=== PATIENT | female | born 1945 | race Caucasian/White ===

== ENCOUNTER 2018-01-08 09:49 | Outpatient (CLI) | payer MEDICARE, OTHER | END 2018-01-08 09:50 | disposition home or self-care (01) | LOC: BICULT 09:49 | PROVIDERS: ATTEND Family Medicine | DX: E04.1 Nontoxic single thyroid nodule (principal) | CPT/HCPCS: 76536 ==

== ENCOUNTER 2020-04-13 05:46 | Outpatient (CLI) | payer MEDICARE, OTHER ==
[2020-04-13 11:49] LABS: #Eosinphils 0.1 thou/uL (0.0-0.7); #Lymphocytes 1.5 thou/uL (1.20-3.40); #Monocytes 0.5 thou/uL (0.11-0.59); #Neutrophils 3.1 thou/uL (1.40-6.50); %Basophils 0.9 % (0.0-1.0); %Eosinophils 2.5 % (0.0-10.0); %Lymphocytes 28.3 % (21.0-51.0); %Monocytes 8.5 % (0.0-10.0); %Neutrophils 59.7 % (42.0-75.0); Hemoglobin 12.8 g/dL (12.0-16.0); Mean Corpuscular HGB CONC 31.7 g/dL (32.0-36.0); Mean Corpuscular Hemoglobin 28.7 pg (27.0-31.0); Mean Corpuscular Volume 90.4 fL (78.0-98.0); Mean Platelet Volume 10.2 fL (7.4-10.4); Platelet Count 134 thou/uL (130-400); RBC Distribution Width 13.5 % (11.5-14.5); Red Blood Cell (RBC) Count 4.47 mill/uL (4.20-5.40); White Blood Cell (WBC) Count 5.2 thou/uL (4.8-10.8)
[2020-04-13 12:08] LABS: ALT (SGPT) 19 U/L (8-55); AST (SGOT) 17 U/L (5-34); Albumin 4.2 g/dL (3.4-4.8); Alkaline Phosphatase 54 U/L (40-110); Anion Gap 11 mmol/L (10-20); BUN (Urea Nitrogen) 10 mg/dL (9.8-20.1); Bilirubin, Total 0.5 mg/dL (0.2-1.2); Calc. Creatinine Clearance 0 mL/min (70-130); Calcium 9.3 mg/dL (7.8-10.44); Carbon Dioxide 27 mmol/L (23-31); Chloride 108 mmol/L (98-107); Estimated GFR-MDRD 77; Globulin 2.1 g/dL (2.4-3.5); Glucose 86 mg/dL (83-110); Potassium 4.1 mmol/L (3.5-5.1); Protein, Total 6.3 g/dL (6.0-8.3); Sodium 142 mmol/L (136-145)
[2020-04-14 13:46] LABS: SARS-CoV-2 MS2 Positive; SARS-CoV-2 N Gene Negative; SARS-CoV-2 S Gene Negative; SARS-CoV-2 orf1ab Negative
== END 2020-04-13 05:47 | disposition home or self-care (01) ==
LOC: LABBT 05:46
PROVIDERS: ATTEND Surgery
DX: Z01.812 Encounter for preprocedural laboratory examination (principal); Z11.59 Encounter for screening for other viral diseases; C50.911 Malignant neoplasm of unspecified site of right female breast
CPT/HCPCS: 80053; 85025; U0003; 87635; 93005; 93010

== ENCOUNTER 2020-04-15 07:23 | Day surgery (SDC) | payer MEDICARE, OTHER ==
[2020-04-15] MEDS ORDERED: Scopolamine 1.5 mg/72 hour Patch ONE (09:35)
--- NOTE | 2020-04-15 10:51 | NM ---
RightBREAST LYMPHOSCINTIGRAPHY: INDICATION: Right breast cancer Radial pharmaceutical: 0.387 mCi of technetium 99m filtered sulfur colloid TECHNIQUE: The rightnipple areolar complex was cleansed with alcohol. The radiotracer was injected wi thin the subcutaneous tissues surrounding the nipple areolar complex in 4 separate aliquots. The patient tolerated the injection without difficulty. FINDINGS: There is radiotracer seen surrounding the rightnipple areolar complex. There is radiotrace r accumulation within the first draining lymph node of the anterior rightaxilla. This was marked on patient's skin. IMPRESSION: Successful rightbreast lymphoscintigraphy.
[2020-04-15] MEDS ORDERED: Bupivacaine 0.25% HCL 30 ML VIAL ONE (11:29)
[2020-04-15] MEDS ORDERED: Methylene Blue 50 MG/10 ML AMPUL ONE (11:29)
[2020-04-15] MEDS ORDERED: Ketorolac Tromethamine 30 MG/ML VIAL ONE (11:39)
[2020-04-15] MEDS ORDERED: Glycopyrrolate 0.2 MG/ML 5 ML SYRINGE ONE (11:39)
[2020-04-15] MEDS ORDERED: PROPOFOL 200 MG/20 ML VIAL ONE (11:39)
[2020-04-15] MEDS ORDERED: Dexamethasone 20 MG/5 ML VIAL ONE (11:39)
[2020-04-15] MEDS ORDERED: Rocuronium Bromide 10 MG/ML (10ML VIAL) ONE (11:39)
[2020-04-15] MEDS ORDERED: Ondansetron PF 4 MG/2 ML Vial ONE ×2 (11:39→15:54)
[2020-04-15] MEDS ORDERED: Levofloxacin 500 mg/D5W 100 ml Premix Bag ONE (11:45)
[2020-04-15] MEDS ORDERED: Lidocaine 1% w/Epinephrine 1:100K 20 ML VIAL ONE (12:15)
[2020-04-15] MEDS ORDERED: Morphine 4 MG/ML VIAL ONE (13:25)
[2020-04-15] MEDS ORDERED: Meperidine HCl/PF 25 MG/ML VIAL ONE (13:38)
[2020-04-15] MEDS ORDERED: Morphine 2 MG/ML SYRINGE ONE ×3 (13:45→14:05)
[2020-04-15] MEDS ORDERED: hydrALAZINE 20 MG/ML VIAL ONE ×2 (13:56→15:02)
[2020-04-15] MEDS ORDERED: Promethazine HCl 25 MG/ML VIAL ONE (14:46)
--- NOTE | 2020-04-16 13:38 | OP ---
DATE OF PROCEDURE: 04/15/2020 PREOPERATIVE DIAGNOSIS: Right breast cancer. POSTOPERATIVE DIAGNOSIS: Right breast cancer. PROCEDURES PERFORMED: 1. Right partial mastectomy. 2. Right deep axillary node biopsy (sentinel node protocol). ANESTHESIA: General. ESTIMATED BLOOD LOSS: Minimal. COMPLICATIONS: None. SPECIMEN: Right breast specimen marked with 2 short superior and 1 long lateral and sent to Path for final diagnosis. The skins included with the specimen at the anterior margin, right sentinel nodes. DESCRIPTION OF PROCEDURE: The patient undergone preop lymphoscintigraphy. She did not have needle localization because the area is palpable. She was taken to the operating room and laid spine on the operating table. After general anesthetic was obtained, a 5 mL of methylene blue dye infiltrated under the right nipple, massaged for 10 minutes. The chest, breast, axilla, and proximal arm were all prepped and draped in a sterile fashion. Incision was made on the inferior hairline of the right axilla. Clavipectoral fascia was entered and a blue area of uptake was found, it has high nuclear counts, this area was removed. Background counts dropped to near zero. This was sent as the sentinel node. There was no bleeding. The wound was irrigated. Local anesthetic was applied. The wound was closed using 3-0 Vicryl, 4-0 Monocryl, and Dermabond. Next, incision was made over a previous incision in the upper right breast in the area of palpable mass. The skin was excised as the anterior margin. Flaps were raised superior medially, inferior laterally, and deep to the abnormality. It was marked with 2 short superior and 1 long lateral, sent to Path for final diagnosis. The wound was irrigated. Local anesthetic was applied. The wound was closed using 3-0 Vicryl, 4-0 Monocryl, and Dermabond. The patient was sent to Recovery in stable condition. All instrument counts, needle counts, and lap counts were correct. Job ID: [id number]
== END 2020-04-15 17:46 | disposition home or self-care (01) ==
LOC: NM 07:23 → SDC 17:46
PROVIDERS: ATTEND Surgery
PROC: 0HBT0ZZ Excision of Right Breast, Open Approach (ICD-10-PCS; principal; 2020-04-15)
PROC: 07B53ZX Excision of Right Axillary Lymphatic, Percutaneous Approach, Diagnostic (ICD-10-PCS; 2020-04-15)
DX: C50.411 Malignant neoplasm of upper-outer quadrant of right female breast (principal); E78.00 Pure hypercholesterolemia, unspecified; E78.5 Hyperlipidemia, unspecified; Z17.0 Estrogen receptor positive status [ER+]; Z79.82 Long term (current) use of aspirin; Z79.899 Other long term (current) drug therapy; Z88.0 Allergy status to penicillin; Z88.8 Allergy status to other drugs, medicaments and biological substances; Z91.018 Allergy to other foods
CPT/HCPCS: 19301; 38525; 78195; A9541; Q9968; 88307; 88341; 88342; J0360; J0690; J1100; J1885; J1956; J2175; J2270; J2405; J2550; J2704; S0020

== ENCOUNTER 2021-02-22 08:51 | Outpatient (CLI) | payer MEDICARE, OTHER | END 2021-02-22 08:52 | disposition home or self-care (01) | LOC: BICMAMMO 08:51 | PROVIDERS: ATTEND Surgery | DX: Z08 Encounter for follow-up examination after completed treatment for malignant neoplasm (principal); Z85.3 Personal history of malignant neoplasm of breast | CPT/HCPCS: 77066; G0279 ==

== ENCOUNTER 2021-09-28 08:32 | Outpatient (CLI) | payer MEDICARE, OTHER | END 2021-09-28 08:33 | disposition home or self-care (01) | LOC: SCSRAD 08:32 | PROVIDERS: ATTEND Family Medicine | DX: M25.512 Pain in left shoulder (principal); M89.8X2 Other specified disorders of bone, upper arm; W19.XXXD Unspecified fall, subsequent encounter | CPT/HCPCS: 80053; 85025 ==

== ENCOUNTER 2022-02-24 09:22 | Outpatient (CLI) | payer MEDICARE, OTHER | END 2022-02-24 09:23 | disposition home or self-care (01) | LOC: BICMAMMO 09:22 | PROVIDERS: ATTEND Surgery | DX: Z08 Encounter for follow-up examination after completed treatment for malignant neoplasm (principal); R92.1 Mammographic calcification found on diagnostic imaging of breast; Z85.3 Personal history of malignant neoplasm of breast; Z98.890 Other specified postprocedural states | CPT/HCPCS: 77066; G0279 ==

== ENCOUNTER 2023-02-27 09:06 | Outpatient (CLI) | payer MEDICARE, OTHER | END 2023-02-27 09:07 | disposition home or self-care (01) | LOC: BICMAMMO 09:06 | PROVIDERS: ATTEND Surgery | DX: Z08 Encounter for follow-up examination after completed treatment for malignant neoplasm (principal); Z85.3 Personal history of malignant neoplasm of breast; Z98.890 Other specified postprocedural states | CPT/HCPCS: 77066; G0279 ==

== ENCOUNTER 2024-02-29 08:33 | Outpatient (CLI) | payer MEDICARE, OTHER | END 2024-02-29 08:34 | disposition home or self-care (01) | LOC: BICMAMMO 08:33 | PROVIDERS: ATTEND Surgery | DX: Z48.3 Aftercare following surgery for neoplasm (principal); Z98.890 Other specified postprocedural states | CPT/HCPCS: 77066; G0279 ==